=== PATIENT | male | born 1970 | race Caucasian/White ===

== ENCOUNTER 2019-10-21 12:44 | Emergency (ER) | payer OTHER ==
[2019-10-21 12:51] VITALS: TEMP 97; BMI 28.6
--- NOTE | 2019-10-21 13:35 | PDOC ---
History of Present Illness - General Chief Complaint: Injury Stated Complaint: RT LEG INJURY Time Seen by Provider: 10/21/19 13:34 History Source: Patient Exam Limitations: No Limitations - History of Present Illness Initial Comments: 10/21/19 14:16 49y previously healthy M presenting w R thigh laceration. 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 Fell back . Denies LOC, head trauma, not on anticoagulation. Able to ambulate w pain. Denies loss of sensation, can still move extremities. Denies fever, nausea /vomiting, CP, SOB. Last tetanus shot 2 years ago, no PCP Past History - Past Medical History Allergies/Adverse Reactions: Allergies Allergy/AdvReac Type Severity Reaction Status Date / Time No Known Allergies Allergy Verified 10/21/19 12:51 Home Medications: Ambulatory Orders NK [No Known Home Medication] 10/21/19 COPD: No - Immunization History Immunization Up to Date: No - Psycho Social/Smoking Cessation Hx Smoking History: Current every day smoker Information on smoking cessation initiated: No Review of Systems - Review of Systems Constitutional: No: Chills, Fever HEENTM: No: Eye Pain, Nose Pain, Throat Pain, Mouth Pain Respiratory: No: Cough, Shortness of Breath Cardiac (ROS): No: Chest Pain, Palpitations, Syncope ABD/GI: No: Abdominal Distended, Constipated, Diarrhea, Nausea, Vomiting : No: Burning, Dysuria, Hematuria Musculoskeletal: Yes: Muscle Pain. No: Back Pain Integumentary: No: Bruising, Flushing, Lesions Neurological: No: Headache, Seizure, Tingling Psychiatric: No: Anxiety, Depression Endocrine: No: Excessive Sweating, Flushing, Intolerance to Cold, Intolerance to Heat Hematologic/Lymphatic: No: Anemia, Easy Bleeding *Physical Exam - Vital Signs Last Vital Signs Temp Pulse Resp BP Pulse Ox 97 F L 87 18 179/109 H 98 10/21/19 12:48 10/21/19 12:48 10/21/19 12:48 10/21/19 12:48 10/21/19 12:48 - Physical Exam General Appearance: Yes: Nourished, Appropriately Dressed, Mild Distress HEENT: positive: EOMI, ARELY, Normal Voice, Hearing Grossly Normal. negative: Scleral Icterus (R), Scleral Icterus (L), Nasal Congestion, Rhinorrhea Respiratory/Chest: positive: Lungs Clear, Normal Breath Sounds. negative: Chest Tender, Respiratory Distress, Crackles, Rales, Rhonchi, Stridor, Wheezing Cardiovascular: positive: Regular Rhythm, Regular Rate, S1, S2. negative: Edema , Murmur Vascular Pulses: Dorsalis-Pedis (R): 2+, Doralis-Pedis (L): 2+ Extremity: positive: Normal Capillary Refill, Other (12cm laceration through fascia 3cm into muscle over distal R medial femur, bleeding, tender, not warm, no bony deformity) Integumentary: positive: Normal Color. negative: Rash, Swelling Neurologic: positive: strategy manager II-XII NML intact, Fully Oriented, Alert, Normal Response, Motor Strength 5/5 (R hip flexion limited d/t pain. 5/5 mariela dorsi/ plantarflexion), Respond to painful stimul, Responsive. negative: Numbness (BLE ), Sensory Deficit (BLE), Confused, Disoriented Procedures - Laceration/Wound Repair Right Anterior Medial Leg Wound Length: 12.6 to 20 cm Wound Explored: foreign body removed Wound's Depth, Shape: into muscle Irrigated w/ Saline: Yes Betadine Prep: Yes Anesthesia: 1% Lidocaine w/ Epi Amount of Anesthetic (ccs): 60 Wound Debrided: minimal Wound Repaired With: Sutures, Cherry Plain Layer Closure: Yes Deep Layer Suture Size/Type: gut Number of Deep Layer Sutures: 1 Sterile Dressing Applied: No Splint Applied: No Sling Applied: No ED Treatment Course - LABORATORY CBC & Chemistry Diagram: 10/21/19 15:18 10/21/19 15:18 Medical Decision Making - Medical Decision Making 10/21/19 14:44 2g ancef, 4mg morphine, tetanus shot wbc 12.6 w left shift --- 49y previously healthy M presenting w 12cm medial distal R femur open laceration into muscle w rock crusher operator. Neurovascular intact distal to laceration. Low concern for compartment syndrome (no edema, intact pulses and sensation) vs fracture/dislocation (ruled out on XR). Femur XR showed 2 small round radiolucencies w sclerotic borders, largest 3.2x1.9cm. Given 2g ancef, 8mg morphine, tetanus shot Consulted gen surg Mariya. Cleaned, numbed, and closed by Dr Meraz. DC home w crutches, referred PCP f/u for XR findings, wound care instructions, and Dr Meraz referral for wound recheck Discharge - Discharge Information Problems reviewed: Yes Clinical Impression/Diagnosis: Laceration of right thigh Qualifiers: Encounter type: initial encounter Qualified Code(s): S71.111A - Laceration without foreign body, right thigh, initial encounter Condition: Stable Disposition: HOME - Follow up/Referral Referrals: [facility] [Provider Group] Sherwin Tompkins MD [Staff Physician] - Jamin Meraz MD [Staff Physician] - - Patient Discharge Instructions Patient Printed Discharge Instructions: DI for Laceration Repair -- Vj Additional Instructions: Postoperative instructions: You had washout and closure of a right thigh traumatic laceration on 10/21/[address] Jamin Meraz of [facility]. Activity: Resume your usual activities gradually; it is ok to walk as you are able. Remove your dressing 48 hours after surgery. You may shower daily starting then, just pat the incision dry. No bath or swimming until the cut has healed. Apply a small amount of bacitracin ointment to the staple line, and keep it covered daily with gauze and tape for a few days, or as long as there is any drainage. If the dressing soaks through, change it as needed. When it no longer drains anything, just apply the bacitracin once or twice daily, and it is ok to leave it uncovered. Pain: For pain, you may use and alternate Tylenol (acetaminophen) 1-2 pills and/ or ibuprofen 200 mg (1-3 pills) every 6 hours each as needed; this means that you can take one OR the other at 3-hour intervals. Do not take more than 4000 mg of acetaminophen in a day. Take medications as prescribed or indicated on the labeling. Follow-up: Call [phone] to make your postop appointment (Nov 01 if possible), for staple removal. Clinic is held in the [facility] on the fifth floor of [facility] ([facility]). Call Dr. Meraz's office at [phone] and/or return to the Emergency Room if you have: * increasing pain not responsive to pain medication * fever of 101F or higher * unusual or increasing bleeding or drainage from wounds * increasing redness or swelling at wound sites Also, call for an appointment with a primary medical doctor you have been referred to within 1-2 weeks. - Post Discharge Activity
[2019-10-21] MEDS ORDERED: morphine CARPU-JECT 4 MG/1 ML DISP.SYRIN IVPUSH ONE ×3 (14:11→17:01)
[2019-10-21] MEDS ORDERED: ceFAZolin 2 GRAM PREMIX BAG IVPB ONE (14:23)
[2019-10-21] MEDS ORDERED: DIPHTH,PERTUSS(ACELL),TET 0.5 ML DISP.SYRIN IM ONE ×3 (14:23→15:41)
[2019-10-21] MEDS ORDERED: CEFAZOLIN 1 GM/D5W 2 GM/100 ML BAG ONE (15:18)
[2019-10-21] MEDS ORDERED: MORPHINE SULFATE 2 MG/ML VIAL ONE ×2 (15:18→17:17)
[2019-10-21 15:33] LABS: BASO % 0.8 % (0-2.0); EOS % 0.8 % (0-4.5); HEMATOCRIT 42.2 % (35.4-49); HEMOGLOBIN 14.4 GM/dL (11.7-16.9); LYMPH % 9.1 % (8-40); MCH 28.3 pg (25.7-33.7); MEAN CELL VOLUME 83.1 fl (80-96); MEAN PLT VOLUME 7.8 fl (7.5-11.1); MONO % 3.4 % (3.8-10.2); NEUT % 85.9 % (42.8-82.8); PLATELET COUNT 352 K/MM3 (134-434); RBC 5.07 M/mm3 (4.00-5.60); RDW 13.3 % (11.9-15.9); WHITE BLOOD COUNT 12.6 K/mm3 (4.0-10.0)
--- NOTE | 2019-10-21 15:52 | PDOC ---
Documentation entered by Petra Kong SCRIBE, acting as scribe for Hans Sanchez MD. Hans Sanchez MD: This documentation has been prepared by the Luann kidd Nirvannie, SCRIBE, under my direction and personally reviewed by me in its entirety. I confirm that the documentation accurately reflects all work, treatment, procedures, and medical decision making performed by me. Attending Attestation - Resident Resident Name: LinneaEsa - ED Attending Attestation I have performed the following: I have examined & evaluated the patient, The case was reviewed & discussed with the resident, I agree w/resident's findings & plan, Exceptions are as noted - HPI HPI: 10/21/19 15:18 The patient is a 49 year old male, with no significant past medical history, who presents to the emergency department with right medial thigh laceration. As per patient, he was using a rolled glass crosscutter at which time he fell backwards sustaining a 4 inch laceration to the right medial thigh. Patient notes he has been able to ambulate with pain s/p accident. He denies any change in strength/sensation, injuries to the torso/head/neck/ upper extremities, or LOC. He denies any recent fevers, chills, headache or dizziness. He denies any recent nausea, vomiting, diarrhea or constipation. He denies any recent chest pain or shortness of breath. Allergies: NKDA - Physicial Exam PE: 10/21/19 15:52 see resident exam - Medical Decision Making 10/21/19 15:54 49 M with deep R thigh laceration extending into muscle body. - Labs - XR - Tetanus - Ancef - Surgery c/s Pt signed out to oncoming attending at 4:30pm, pending XR, evaluation by surgery , and disposition. 10/24/19 07:28 On review of X-ray results, two circular lesions were incidentally found on XR. Pt called by REKHA Man and informed of results. He has f/u later this month.
[2019-10-21 15:56] LABS: INR 0.98 (0.83-1.09); PROTHROMBIN TIME (PATIENT) 11.6 SEC (9.7-13.0)
[2019-10-21 15:58] LABS: ALBUMIN 3.8 g/dl (3.4-5.0); BILIRUBIN,TOTAL 0.1 mg/dL (0.2-1); BLOOD UREA NITROGEN 23.4 mg/dL (7-18); CREATININE 0.8 mg/dL (0.55-1.3); POTASSIUM 3.6 mmol/L (3.5-5.1); TOT PROT 7.1 g/dl (6.4-8.2)
[2019-10-21] MEDS ORDERED: LIDO 2%/EPI 1:200000 PRESRVFRE (20 ML SDVIAL) INF ONE ×2 (16:48→19:13)
[2019-10-21] MEDS ORDERED: LIDOCAINE 1%/EPI 1:100000 (20 ML MULTI DOSE VIAL) ONE ×2 (16:55→19:16)
[2019-10-21] MEDS ORDERED: morphine SULFATE 4 MG/ML VIAL ONE (18:52)
[2019-10-21] MEDS ORDERED: SODIUM CHLORIDE 0.9% 500 ML INFUS.BAG IV ONE (19:22)
--- NOTE | 2019-10-21 21:55 | CONSULT ---
Consult Consult Specialty:: General Surgery Referred by:: Tato Yarbrough Reason for Consultation:: right thigh laceration with stone-cutting saw - History of Present Illness Chief Complaint: cut his leg with [employer] saw while cutting stone at work History of Present Illness: 49yo Palestinian M with no sig PMH/PSH was at work today cutting stone with [employer] powered saw, when he cut his right thigh with the saw about 12:20 pm. In the ER, he had pain and was given medication, labs show element of dehydration and mild leukocytosis. He was also given Ancef and a tetanus shot. The wound had minimal active bleeding initially per ER. Femur XR showed no fracture or gross FB in the wound, and surgery was asked to assess. He is seen and examined in ER, with sons present, who assisted with Thai at bedside, as did Siva Coreas, MS4. He is more comfortable. He was able to ambulate, move his leg and foot normally, and had no neuro deficits. He smokes about 5 cigarettes a day, drinks socially/some weekends, and does not use any drugs. No regular home medications, last saw physician about 2 years ago. - History Source History Provided By: Patient, Medical Record Limitations to Obtaining History: Language Barrier (Thai - sons assisted at bedside) - Past Medical History Additional Medical History: none - Past Surgical History Past Surgical History: Yes: None - Alcohol/Substance Use Hx Alcohol Use: Yes (social/weekends) History of Substance Use: reports: None - Smoking History Smoking history: Current every day smoker Have you smoked in the past 12 months: Yes Aproximately how many cigarettes per day: 5 - Social History ADL: Independent Occupation: construction Place of : Other ([facility]) Home Medications - Allergies Allergies/Adverse Reactions: Allergies Allergy/AdvReac Type Severity Reaction Status Date / Time No Known Allergies Allergy Verified 10/21/19 12:51 - Home Medications Home Medications: Ambulatory Orders NK [No Known Home Medication] 10/21/19 Family Medical History Family History: Unremarkable (noncontributory) Review of Systems - Review of Systems Constitutional: denies: Chills, Fever Eyes: denies: Blurred Vision, Recent Change in Vision HENT: denies: Difficult Swallowing, Throat Pain Neck: denies: Swollen Glands, Tenderness Cardiovascular: denies: Chest Pain, Palpitations Respiratory: denies: Cough, SOB Gastrointestinal: denies: Abdominal Pain, Indigestion Genitourinary: denies: Burning, Dysuria Musculoskeletal: reports: Extremity Pain (right leg with hpi). denies: Back Pain, Joint Pain, Muscle Pain Integumentary: reports: Wound (see hpi). denies: Rash Neurological: denies: Dizziness, Headache Psychiatric: denies: Anxiety, Depression Physical Exam Vital Signs: Vital Signs Temperature 97 F L 10/21/19 12:48 Pulse Rate 78 10/21/19 12:48 Respiratory Rate 18 10/21/19 12:48 Blood Pressure 140/81 10/21/19 12:48 O2 Sat by Pulse Oximetry (%) 98 10/21/19 12:51 Constitutional: Yes: Well Nourished, No Distress, Calm Eyes: Yes: Conjunctiva Clear, EOM Intact HENT: Yes: Atraumatic, Normocephalic Neck: Yes: Supple, Trachea Midline Cardiovascular: Yes: Regular Rate and Rhythm Respiratory: Yes: Regular, CTA Bilaterally Gastrointestinal: Yes: Normal Bowel Sounds, Soft. No: Tenderness ...Rectal Exam: Yes: Deferred Renal/: No: CVA Tenderness - Left, CVA Tenderness - Right Musculoskeletal: No: Joint Stiffness, Joint Swelling Extremities: Yes: Other (see below). No: Cool, Cyanosis Edema: No Peripheral Pulses WNL: Yes Integumentary: Yes: Laceration (right medial lower thigh). No: Jaundice, Rash Wound/Incision: Yes: Open to air, Bleeding (little oozing, no active/pulsatile bleeding), Unapproximated (11cm almost linear laceration distal medial right thigh, through fascia into muscle belly 2-3cm, with flecks of debris, contused skin edges, most proximal corner with superficial lac through epidermis only) Neurological: Yes: Alert, Oriented, Other (no focal deficits). No: Numbness ...Motor Strength: RLE (normal knee/hip/ankle flexion/extension and strength) Psychiatric: Yes: Alert, Oriented Labs: CBC, BMP 10/21/19 15:18 10/21/19 15:18 Imaging - Results X-ray: Image Reviewed (right femur - no obvious FB noted) Problem List - Problems (1) Laceration without foreign body, right thigh, initial encounter Assessment/Plan: ER did initial local anesthetic and 2L saline irrigation of wound see procedure note for details of surgical washout and closure postop instructions in d/c plan Code(s): S71.111A - LACERATION WITHOUT FOREIGN BODY, RIGHT THIGH, INIT ENCNTR (2) Contact with powered saw as cause of accidental injury Code(s): W31.2XXA - CONTACT W POWERED WOODWORKING AND FORMING MACHINES, INIT (3) Right thigh pain Code(s): M79.651 - PAIN IN RIGHT THIGH (4) Work place accident Code(s): Y99.0 - CIVILIAN ACTIVITY DONE FOR INCOME OR PAY
--- NOTE | 2019-10-21 22:23 | PROC ---
Procedure Note Procedure: dx: traumatic laceration of right thigh proc: irrigation/washout/selective debridement of right thigh traumatic laceration and layered closure of traumatic right thigh laceration (final length 11cm) surg: Jamin Meraz MD anes: local (30ml 1% lido + epi) dispo: home from ER hair around wound shaved for several cm site was prepped with betadine and draped sterilely 30ml 1% lidocaine + epinephrine infiltrated around, under and into the wound wound irrigated with betadine-saline via syringe with splashguard, and debrided of surface debris and minute flecks of black material by mechanically cleaning with gauze and manual removal, then irrigated again and rinsed with plain saline good bleeding from wound edges and some muscle tissue, most stopped with time and pressure I-cautery used for hemostasis in several spots fascia closed over muscle with running 0 vicryl wound edges approximated with several interrupted 3-0 vicryl dermal sutures skin closed with justin, leaving room for drainage between bacitracin applied to staple line dressing of folded gauze and silk tape placed pt tolerated well
[2019-10-21 23:16] VITALS: BP 139/100; PULSE 79
--- NOTE | 2019-10-22 14:47 | EKG ---
Test Reason : Blood Pressure : / mmHG Vent. Rate : 072 BPM Atrial Rate : 072 BPM P-R Int : 146 ms QRS Dur : 092 ms QT Int : 412 ms P-R-T Axes : 051 014 025 degrees QTc Int : 451 ms NORMAL SINUS RHYTHM WITH SINUS ARRHYTHMIA NORMAL ECG NO PREVIOUS ECGS AVAILABLE Confirmed by KESHAWN SANDERSON MD ([id number]) on 10/22/2019 2:47:15 PM Referred By: Confirmed By:KESHAWN SANDERSON MD
== END 2019-10-21 23:16 | disposition home or self-care (01) ==
LOC: JER 12:44
PROC: 0KQQ0ZZ Repair Right Upper Leg Muscle, Open Approach (ICD-10-PCS; principal; 2019-10-21)
PROC: 3E0234Z Introduction of Serum, Toxoid and Vaccine into Muscle, Percutaneous Approach (ICD-10-PCS; 2019-10-21)
DX: S71.111A Laceration without foreign body, right thigh, initial encounter (principal); W45.8XXA Other foreign body or object entering through skin, initial encounter; Y93.89 Activity, other specified; Y92.89 Other specified places as the place of occurrence of the external cause; Y99.0 Civilian activity done for income or pay
CPT/HCPCS: 36415; 73552-TC-RT-FY; 80053; 85025; 85610; 86850; 86900; 86901; 90715; 93005; 93010; 99285-25